=== PATIENT | female | born 1940 | race Caucasian/White ===

== ENCOUNTER 2016-04-19 10:41 | Emergency (ER) | payer MEDICARE, OTHER ==
[2016-04-19 10:50] VITALS: TEMP 98.6; BMI 26.5
[2016-04-19] MEDS ORDERED: SODIUM CHLORIDE 0.9% 10 ML FLUSH FLUSH PRN (10:58)
[2016-04-19] MEDS ORDERED: NS 1,000 ML IV ONE (10:58)
[2016-04-19 11:19] LABS: AUTOMATED BASOPHIL 0.9 % (0-2); AUTOMATED EOSINOPHIL 1.2 % (0-5); AUTOMATED LYMPH 35.9 % (17-44); AUTOMATED MONOCYTE 7.9 % (3-10); AUTOMATED NEUTROPHIL 54.1 % (45-76); MPV 8.9 fL (7.4-10.4)
[2016-04-19 11:30] LABS: BLOOD UREA NITROGEN 17 MG/DL (7-17); CALCIUM 9.8 MG/DL (8.4-10.2); CALCULATED OSMOLALITY 271 MOs/Kg (270-290); CHLORIDE 105 mEq/L (98-107); GLUCOSE 97 MG/DL (70-99); SODIUM LEVEL 140 mEq/L (137-146); TOTAL PROTEIN 7.8 G/DL (6.3-8.2)
[2016-04-19 11:31] LABS: PARTIAL THROMB. TIME 22.9 SEC (22-35)
--- NOTE | 2016-04-19 12:14 | DIRPT ---
CLINICAL DATA: Chest pain, irregular heartbeat EXAM: PORTABLE CHEST 1 VIEW COMPARISON: Portable exam 1119 hours without priors for comparison. FINDINGS: Normal heart size, mediastinal contours, and pulmonary vascularity. Lungs clear. No pneumothorax. Bones unremarkable. IMPRESSION: No acute abnormalities. Electronically Signed By: Ac Beaver M.D. On: 04/19/2016 12:11
--- NOTE | 2016-04-19 12:53 | EDPRACDOC ---
- General Information Chief Complaint: Arrhythmia Stated Complaint: IRREGULAR HEARTBEAT Time Seen by Provider: 04/19/16 10:58 Information Source: Patient Home Medications: Home Medications Levothyroxine Sodium [Synthroid] 50 mcg PO DAILY 06/09/12 Diltiazem HCl [Diltiazem ER] 180 mg PO DAILY 10/09/14 Aspirin (Enteric Coated) [Ecotrin] 81 mg PO DAILY 04/19/16 Biotin [Baldo Biotin] 10,000 mcg PO DAILY 04/19/16 Allergies/Adverse Reactions: Allergies Allergy/AdvReac Type Severity Reaction Status Date / Time Latex, Natural Rubber Allergy Intermediate HANDS SWELL Verified 04/19/16 10:51 levofloxacin Allergy Mild See Verified 04/19/16 10:51 Comments codeine Allergy Itching Verified 04/19/16 10:51 gatifloxacin [From Tequin] Allergy RASH Verified 04/19/16 10:51 glucosamine Allergy GENERALIZED Verified 04/19/16 10:51 RASH guaifenesin [From Quibron] Allergy See Verified 04/19/16 10:51 Comments iodine Allergy ONLY IF Verified 04/19/16 10:51 USED IV prednisone Allergy Facial Verified 04/19/16 10:51 Flusing shellfish derived Allergy VOMITING Verified 04/19/16 10:51 theophylline [From Quibron] Allergy See Verified 04/19/16 10:51 Comments - History of Present Illness Onset: yesterday HPI: LONG HX OF PALPITATIONS AND IRREGULAR HEART BEAT. NO HX OF AFIB. SEES DR. FRAGA AND EVALUATED WITH HOLTER. NO KNOWN ETIOLOGY. NO PAIN. OTHERWISE ASYMPTOMATIC Symptoms Started: Reports: Gradually Relevant History: Reports: Arrhythmia, Palpitations Worsens with: Reports: Nothing Associated signs & symptoms: Reports: None Chest Pain Location: Reports: No Pain Pain Quality: Reports: None Pain Radiation: Reports: None ED Past Medical History - History Reviewed Yes Nurses notes reviewed and agree except as marked - Patient Medical History Cardiac History: Reports: Hypertension Musculoskeletal History: Reports: Osteoarthritis (KNEES) Psychological History: Reports: Depression, Anxiety Systemic History: Reports: Cancer, Hypothyroidism Date of Last Chemotherapy Date: 2013 - Family Medical History Reports: Hypertension (PGF), Cancer (MOTHER KIDNEY CA, FATHER UNKNOWN), Stroke ( PGF), Cardiac Disorders (PGF). Denies: Diabetes - Social Medical History Smoking Status: Never smoker EDM Review of Systems - Review of Systems ROS Negative Except as Marked: Yes All systems reviewed and were negative except as marked - Physical Exam Constitutional: Alert (Awake), No apparent distress Oriented to: Time, Person, Place Last recorded Vital Signs: Last Vital Signs Temp 98.6 F 04/19/16 10:46 Pulse 54 L 04/19/16 12:23 Resp 18 04/19/16 12:23 BP 163/97 04/19/16 12:23 Pulse Ox 99 04/19/16 12:23 Oxygen Pulse Oxygen Saturation 99 O2 Device Room Air Oxygen Flow Rate Fraction of Inspired Oxygen ( FIO2) - HEENT Head: Normal ( normocephalic) Eye Exam: Normal (PERRL, EOMI, Sclera white) Oropharynx: Normal (Pharynx:Moist without exudate,Gums-no swelling) Tympanic Membrane: Normal ENT EAC: Normal TMJ: Normal Nose: No Symptoms Reported (septum midline) Neck: Normal (FROM, trachea at midline) - Respiratory/Cardiovascular Respiratory: Normal - CTA (BBS clear to auscultation without adventitious sounds ) Cardiovascular: Normal (RRR without murmur, gallop or rub) - GI Auscultation: Normal (NABS) Palpation: Normal (Soft,No rebound or guarding, non distended) Tenderness: Non tender Almaguer's Sign: Negative - Musculoskeletal Back: Normal (Non-Tender) Extremities: Normal (Normal tone, Pulses 2+ No cyanosis or edema, FROM) - Integumentary Skin: Normal, Warm, Dry Lymphatics: Normal (no adenopathy) - Neurologic Memory Impaired: Normal Motor Function: Normal (Normal tone, Pulses 2+ No cyanosis or edema, FROM) Cranial Nerve: Normal (CN II-X11 intact sensation, strength 5/5) Cerebellar: Normal Mood Description: Normal Perception: Normal - Results 04/19/16 11:08 04/19/16 11:08 WBC 5.3 xk/uL (3.8-10.8) 04/19/16 11:08 RBC 4.63 xM/uL (4.20-5.40) 04/19/16 11:08 Hgb 14.3 g/dL (12.0-16.0) 04/19/16 11:08 Hct 42.3 % (36-47) 04/19/16 11:08 MCV 91 fL (81-99) 04/19/16 11:08 MCH 31.0 pg (27-32) 04/19/16 11:08 MCHC 33.9 g/dl (33-36) 04/19/16 11:08 RDW 13.9 % (11.5-14.5) 04/19/16 11:08 Plt Count 232 xk/uL (130-400) 04/19/16 11:08 MPV 8.9 fL (7.4-10.4) 04/19/16 11:08 Neut % (Auto) 54.1 % (45-76) 04/19/16 11:08 Lymph % (Auto) 35.9 % (17-44) 04/19/16 11:08 [place] % (Auto) 7.9 % (3-10) 04/19/16 11:08 Eos % (Auto) 1.2 % (0-5) 04/19/16 11:08 Baso % (Auto) 0.9 % (0-2) 04/19/16 11:08 Absolute Neuts (auto) 2.86 xk/uL (1.7-8.2) 04/19/16 11:08 Absolute Lymphs (auto) 1.86 xk/uL (0.65-4.75) 04/19/16 11:08 PT 10.6 SEC (9.2-11.2) 04/19/16 11:08 INR 1.0 04/19/16 11:08 APTT 22.9 SEC (22-35) 04/19/16 11:08 Sodium 140 mEq/L (137-146) 04/19/16 11:08 Potassium 4.0 mEq/L (3.5-5.1) 04/19/16 11:08 Chloride 105 mEq/L (98-107) 04/19/16 11:08 Carbon Dioxide 24 mMOL/L (22-33) 04/19/16 11:08 Anion Gap 15 mEq/L (8-16) 04/19/16 11:08 BUN 17 MG/DL (7-17) 04/19/16 11:08 Creatinine 0.60 MG/DL (0.52-1.04) 04/19/16 11:08 Estimated GFR (MDRD) > 60 mL/min (>=60) 04/19/16 11:08 Glucose 97 MG/DL (70-99) 04/19/16 11:08 Calculated Osmolality 271 MOs/Kg (270-290) 04/19/16 11:08 Calcium 9.8 MG/DL (8.4-10.2) 04/19/16 11:08 Total Bilirubin 0.6 MG/DL (0.2-1.3) 04/19/16 11:08 AST 28 IU/L (14-36) 04/19/16 11:08 ALT 26 IU/L (9-52) 04/19/16 11:08 Alkaline Phosphatase 135 IU/L (55-165) 04/19/16 11:08 Troponin I < 0.01 ng/mL (<.04) 04/19/16 11:08 Lor-C-Ynmjergzrxx Pept 201 pg/mL (0-1800) 04/19/16 11:08 Total Protein 7.8 G/DL (6.3-8.2) 04/19/16 11:08 Albumin 4.6 G/DL (3.5-5.0) 04/19/16 11:08 Lab Results 04/19/16 04/19/16 04/19/16 11:08 11:08 11:08 WBC 5.3 RBC 4.63 Hgb 14.3 Hct 42.3 MCV 91 MCH 31.0 MCHC 33.9 RDW 13.9 Plt Count 232 MPV 8.9 Neut % (Auto) 54.1 Lymph % (Auto) 35.9 [place] % (Auto) 7.9 Eos % (Auto) 1.2 Baso % (Auto) 0.9 Absolute Neuts (auto) 2.86 Absolute Lymphs (auto) 1.86 PT 10.6 INR 1.0 APTT 22.9 Sodium 140 Potassium 4.0 Chloride 105 Carbon Dioxide 24 Anion Gap 15 BUN 17 Creatinine 0.60 Estimated GFR (MDRD) > 60 Glucose 97 Calculated Osmolality 271 Calcium 9.8 Total Bilirubin 0.6 AST 28 ALT 26 Alkaline Phosphatase 135 Troponin I < 0.01 Lom-E-Howkbhnluyh Pept 201 Total Protein 7.8 Albumin 4.6 - EKG EKG #1 [place]: Normal Rhythm: NSR, PACs Block: None Hypertrophy: None ST: Normal Decision Time to Discharge: 12:52 - Departure Yes I personally saw and evaluated the patient. Disposition: Home Condition: Good Final Diagnosis: Palpitations Instructions: Palpitations (ED) Education/Counseling Given To: Patient, Family Member Education/Counseling Given Regarding: Diagnosis, Treatment, Prognosis
[2016-04-19 13:17] VITALS: BP 138/72; PULSE 81
== END 2016-04-19 13:26 | disposition home or self-care (01) ==
LOC: ED 10:41
DX: R00.2 Palpitations (principal)
CPT/HCPCS: 36415; 71010; 80053; 83880; 84484; 85025; 85610; 85730; 93005; 96360; 96361; 99284